=== PATIENT | male | born 1985 | race Caucasian/White ===

== ENCOUNTER 2020-09-24 18:30 | Emergency (ER) | payer MEDICAID ==
[~2020-09-24] VITALS: Ht 182.9 cm; Wt 86.4 kg
[~2020-09-24 18:30] MED LIST: BUPR-86 PO; CLON1TAB PO; DIVA500T2 PO; LORA-446 PO; OXYC-307 PO; PARO40TA61 PO
[2020-09-24] MEDS ORDERED: SODIUM CHLORIDE FLUSH 10ML SYR IVF ONE (20:00)
[2020-09-24] MEDS ORDERED: MAALOX/HYOSCYAMINE/LIDOCAINE 45 ML BTL PO ONE (20:00)
[2020-09-24] MEDS ORDERED: SODIUM CHLORIDE 0.9% 1,000ML IVBOLUS ONE (20:00)
[2020-09-24] MEDS ORDERED: ONDANSETRON 2MG/ML, 2ML IVPush ONE (20:00)
[2020-09-24] MEDS ORDERED: FAMOTIDINE 20 MG/2 ML IVPush ONE (20:00)
[2020-09-24 20:19] LABS: RAPID INFLUENZA A Negative (Negative); RAPID INFLUENZA B Negative (Negative)
[2020-09-24] MEDS ORDERED: ONDANSETRON 2MG/ML, 2ML ONE (20:33)
[2020-09-24] MEDS ORDERED: MAALOX/HYOSCYAMINE/LIDOCAINE 45 ML BTL ONE (20:33)
[2020-09-24] MEDS ORDERED: FAMOTIDINE 20 MG/2 ML ONE (20:34)
[2020-09-24 20:47] LABS: ALBUMIN 4.4 g/dL (3.4-5.0); ANION GAP 11 mmol/L (5-15); CALCIUM 8.9 mg/dL (8.5-10.1); CHLORIDE 107 mmol/L (98-107)
[2020-09-24 20:53] LABS: BASOPHILS % (AUTO) 0 % (0-1); EOSINOPHILS % (AUTO) 0 % (1-7); LYMPHOCYTES % (AUTO) 21 % (22-44); MEAN CORPUSCULAR HEMOGLOBIN 34.3 pg (27.5-34.5); MEAN CORPUSCULAR HGB CONC 35.2 g/dL (33.2-36.2); MONOCYTES % (AUTO) 12 % (2-9); NEUTROPHILS % (AUTO) 67 % (42-75); PLATELET COUNT 118 x10^3/uL (130-400); RED BLOOD COUNT 4.72 x10^6/uL (4.38-5.82); RED CELL DISTRIBUTION WIDTH 13.3 % (9.4-14.8)
[2020-09-24 20:59] LABS: ALANINE AMINOTRANSFERASE 126 U/L (12-78); ALKALINE PHOSPHATASE 63 U/L (45-117); BILIRUBIN,TOTAL 0.7 mg/dL (0.2-1.0); CREATININE 0.95 mg/dL (0.7-1.3); TOTAL PROTEIN 8.5 g/dL (6.4-8.2)
[2020-09-24 21:13] LABS: MD NO
[2020-09-24 22:04] VITALS: BP 154/92
--- NOTE | 2020-09-24 22:04 | NUR ---
PT PASSED PO CHALLENGE. NO EMESIS AFTER WATER CONSUMPTION.
--- NOTE | 2020-09-24 23:41 | NUR ---
PT VSS. IV REMOVED. GIVEN RESOURCES FOR ETOH WITHDRAWAL. PT VERBALIZED UNDERSTANDING. PT IS NOT DRIVING, RETURNING HOME VIA [facility].
== END 2020-09-24 23:43 | disposition home or self-care (01) ==
LOC: ED 20:00
DX: K70.10 Alcoholic hepatitis without ascites (principal); K29.20 Alcoholic gastritis without bleeding; F10.10 Alcohol abuse, uncomplicated; R11.2 Nausea with vomiting, unspecified; Z20.828 Contact with and (suspected) exposure to other viral communicable diseases; R94.5 Abnormal results of liver function studies; F10.120 Alcohol abuse with intoxication, uncomplicated; B34.9 Viral infection, unspecified; Y90.0 Blood alcohol level of less than 20 mg/100 ml
CPT/HCPCS: 71045; 80053; 80320; 85025; 87400; 87635; 96361; 96374; 96375; 99284; J2405; J7030; G0480